=== PATIENT | female | born 1950 | race Caucasian/White ===

== ENCOUNTER 2020-06-15 13:10 | Outpatient (CLI) | payer MEDICARE, MEDICAID ==
[2020-06-15] MEDS ORDERED: LIDOCAINE SOLN 4% 50 ML BOTTLE ONE (13:47)
== END 2020-06-15 23:59 | disposition home or self-care (01) ==
LOC: WOU 13:10
PROVIDERS: ATTEND Specialist
DX: L02.521 Furuncle right hand (principal); L98.492 Non-pressure chronic ulcer of skin of other sites with fat layer exposed; C55 Malignant neoplasm of uterus, part unspecified; M79.644 Pain in right finger(s); I10 Essential (primary) hypertension
CPT/HCPCS: 11042; 87070; 87075; 87077; A6209 ×2

== ENCOUNTER 2020-06-22 10:47 | Outpatient (CLI) | payer MEDICARE, MEDICAID ==
[2020-06-22] MEDS ORDERED: MUPIROCIN 2% CREAM 15 GM TUBE TP ONE (11:00)
== END 2020-06-22 23:59 | disposition home or self-care (01) ==
LOC: WOU 10:47
PROVIDERS: ATTEND Specialist
DX: L02.521 Furuncle right hand (principal); B95.62 Methicillin resistant Staphylococcus aureus infection as the cause of diseases classified elsewhere; C55 Malignant neoplasm of uterus, part unspecified; E11.9 Type 2 diabetes mellitus without complications; Z79.84 Long term (current) use of oral hypoglycemic drugs; I10 Essential (primary) hypertension; Z79.82 Long term (current) use of aspirin
CPT/HCPCS: G0463

== ENCOUNTER 2020-07-06 10:00 | Outpatient (CLI) | payer MEDICARE, MEDICAID ==
[2020-07-06] MEDS ORDERED: LIDOCAINE 2% JEL 5 ML TUBE ONE (10:41)
== END 2020-07-06 23:59 | disposition home or self-care (01) ==
LOC: WOU 10:00
PROVIDERS: ATTEND Specialist
DX: L02.521 Furuncle right hand (principal); B95.62 Methicillin resistant Staphylococcus aureus infection as the cause of diseases classified elsewhere; L98.492 Non-pressure chronic ulcer of skin of other sites with fat layer exposed; C55 Malignant neoplasm of uterus, part unspecified; E11.9 Type 2 diabetes mellitus without complications; Z79.84 Long term (current) use of oral hypoglycemic drugs; I10 Essential (primary) hypertension; Z79.82 Long term (current) use of aspirin
CPT/HCPCS: G0463

== ENCOUNTER 2020-07-13 10:30 | Outpatient (CLI) | payer MEDICARE, MEDICAID ==
[2020-07-13] MEDS ORDERED: LIDOCAINE 2% JEL 5 ML TUBE ONE (11:02)
== END 2020-07-13 23:59 | disposition home or self-care (01) ==
LOC: WOU 10:30
PROVIDERS: ATTEND Specialist
DX: L02.521 Furuncle right hand (principal); B95.62 Methicillin resistant Staphylococcus aureus infection as the cause of diseases classified elsewhere; L98.492 Non-pressure chronic ulcer of skin of other sites with fat layer exposed; C55 Malignant neoplasm of uterus, part unspecified; E11.9 Type 2 diabetes mellitus without complications; Z79.84 Long term (current) use of oral hypoglycemic drugs; Z79.82 Long term (current) use of aspirin
CPT/HCPCS: G0463

== ENCOUNTER 2020-07-27 10:45 | Outpatient (CLI) | payer MEDICARE, MEDICAID ==
[~2020-07-27 10:45] MED LIST: Z GUARD REMEDY 2 OZ OINT TP ONE
[2020-07-27] MEDS ORDERED: LIDOCAINE SOLN 4% 50 ML BOTTLE ONE (11:22)
[2020-07-27] MEDS ORDERED: MUPIROCIN 2% CREAM 15 GM TUBE TP ONE (11:29)
== END 2020-07-27 23:59 | disposition home or self-care (01) ==
LOC: WOU 10:45
PROVIDERS: ATTEND Specialist
DX: L02.521 Furuncle right hand (principal); B95.62 Methicillin resistant Staphylococcus aureus infection as the cause of diseases classified elsewhere; C55 Malignant neoplasm of uterus, part unspecified; E11.9 Type 2 diabetes mellitus without complications; Z79.84 Long term (current) use of oral hypoglycemic drugs; Z79.82 Long term (current) use of aspirin
CPT/HCPCS: G0463

== ENCOUNTER 2020-08-03 13:00 | Outpatient (CLI) | payer MEDICARE, MEDICAID ==
[2020-08-03] MEDS ORDERED: LIDOCAINE 2% JEL 5 ML TUBE ONE (13:03)
[2020-08-03] MEDS ORDERED: MUPIROCIN 2% CREAM 15 GM TUBE TP ONE (13:31)
== END 2020-08-03 23:59 | disposition home or self-care (01) ==
LOC: WOU 13:00
PROVIDERS: ATTEND Specialist
DX: L02.521 Furuncle right hand (principal); L98.498 Non-pressure chronic ulcer of skin of other sites with other specified severity; B95.62 Methicillin resistant Staphylococcus aureus infection as the cause of diseases classified elsewhere; C55 Malignant neoplasm of uterus, part unspecified; E11.9 Type 2 diabetes mellitus without complications; Z79.84 Long term (current) use of oral hypoglycemic drugs; Z79.82 Long term (current) use of aspirin

== ENCOUNTER 2020-08-10 13:00 | Outpatient (CLI) | payer MEDICARE, MEDICAID ==
[2020-08-10] MEDS ORDERED: LIDOCAINE 2% JEL 5 ML TUBE ONE (13:30)
== END 2020-08-10 23:59 | disposition home or self-care (01) ==
LOC: WOU 13:00
PROVIDERS: ATTEND Specialist
DX: L02.521 Furuncle right hand (principal); C55 Malignant neoplasm of uterus, part unspecified; E11.9 Type 2 diabetes mellitus without complications; Z79.84 Long term (current) use of oral hypoglycemic drugs; Z79.82 Long term (current) use of aspirin
CPT/HCPCS: G0463

== ENCOUNTER 2020-10-12 10:30 | Outpatient (CLI) | payer MEDICARE, MEDICAID ==
[2020-10-12] MEDS ORDERED: LIDOCAINE SOLN 4% 50 ML BOTTLE ONE (10:37)
[2020-10-12] MEDS ORDERED: LIDOCAINE 2% JEL 5 ML TUBE ONE (10:58)
[2020-10-12] MEDS ORDERED: MUPIROCIN 2% CREAM 15 GM TUBE TP ONE (10:59)
== END 2020-10-12 23:59 | disposition home or self-care (01) ==
LOC: WOU 10:30
PROVIDERS: ATTEND Specialist
DX: L02.521 Furuncle right hand (principal); B95.62 Methicillin resistant Staphylococcus aureus infection as the cause of diseases classified elsewhere; C55 Malignant neoplasm of uterus, part unspecified; E11.9 Type 2 diabetes mellitus without complications; Z79.84 Long term (current) use of oral hypoglycemic drugs; Z79.82 Long term (current) use of aspirin
CPT/HCPCS: 73140; 87070; 87075; 87077; 87186; G0463

== ENCOUNTER 2020-10-19 10:30 | Outpatient (CLI) | payer MEDICARE, MEDICAID | END 2020-10-19 23:59 | disposition home or self-care (01) | LOC: WOU 10:30 | PROVIDERS: ATTEND Specialist | DX: Z09 Encounter for follow-up examination after completed treatment for conditions other than malignant neoplasm (principal); Z87.2 Personal history of diseases of the skin and subcutaneous tissue; M19.90 Unspecified osteoarthritis, unspecified site; C55 Malignant neoplasm of uterus, part unspecified; E11.9 Type 2 diabetes mellitus without complications; Z79.82 Long term (current) use of aspirin; Z79.84 Long term (current) use of oral hypoglycemic drugs | CPT/HCPCS: G0463 ==